=== PATIENT | female | born 1930 | race Two or more races ===

== ENCOUNTER 2017-09-13 08:43 | Emergency (ER) | payer OTHER ==
[~2017-09-13] VITALS: Ht 170.2 cm; Wt 65.8 kg
[~2017-09-13 08:43] MED LIST: A/F PAIN RELIE500 MG; ALAVERT10 MG; AMLODIPINE BESYL5 MG; CLONAZEPAM1 MG; DIOVAN320 MG; FLUOXETINE HCL10 MG; PEPCID40 MG; PROTONIX40 M1
== END 2017-09-13 18:53 | disposition home or self-care (01) ==
LOC: ER 08:43
DX: M62.81 Muscle weakness (generalized) (principal); G89.29 Other chronic pain; M25.561 Pain in right knee

== ENCOUNTER 2017-11-03 18:51 | Inpatient (IN) | payer OTHER ==
[~2017-11-03] VITALS: Ht 172.7 cm; Wt 75.7 kg
== END 2017-12-05 19:17 | disposition expired | DRG 291 ==
LOC: ER 18:51 → ICU-2 11-04 00:09 → ICU 11-04 00:09 → MEDJ 11-09 18:33 → MEDI 11-09 18:33 → MEDJ 11-10 13:24 → ICU 11-16 12:35
PROC: B246ZZZ Ultrasonography of Right and Left Heart (ICD-10-PCS; principal; 2017-11-04)
PROC: 3E0F7GC Introduction of Other Therapeutic Substance into Respiratory Tract, Via Natural or Artificial Opening (ICD-10-PCS; 2017-11-04)
PROC: 02HV33Z Insertion of Infusion Device into Superior Vena Cava, Percutaneous Approach (ICD-10-PCS; 2017-11-07)
PROC: BW28ZZZ Computerized Tomography (CT Scan) of Head (ICD-10-PCS; 2017-11-09)
PROC: 4A12X4Z Monitoring of Cardiac Electrical Activity, External Approach (ICD-10-PCS; 2017-11-09)
PROC: 4A033R1 Measurement of Arterial Saturation, Peripheral, Percutaneous Approach (ICD-10-PCS; 2017-11-11)
PROC: BW40ZZZ Ultrasonography of Abdomen (ICD-10-PCS; 2017-11-11)
PROC: 5A1955Z Respiratory Ventilation, Greater than 96 Consecutive Hours (ICD-10-PCS; 2017-11-16)
PROC: 0BH17EZ Insertion of Endotracheal Airway into Trachea, Via Natural or Artificial Opening (ICD-10-PCS; 2017-11-16)
PROC: 30233R1 Transfusion of Nonautologous Platelets into Peripheral Vein, Percutaneous Approach (ICD-10-PCS; 2017-12-03)
DX: I11.0 Hypertensive heart disease with heart failure (principal); G93.41 Metabolic encephalopathy; J96.01 Acute respiratory failure with hypoxia; A41.9 Sepsis, unspecified organism; J81.0 Acute pulmonary edema; J18.9 Pneumonia, unspecified organism; R65.21 Severe sepsis with septic shock; D65 Disseminated intravascular coagulation [defibrination syndrome]; A41.59 Other Gram-negative sepsis; J44.1 Chronic obstructive pulmonary disease with (acute) exacerbation; B37.0 Candidal stomatitis; N17.8 Other acute kidney failure; B37.49 Other urogenital candidiasis; E87.1 Hypo-osmolality and hyponatremia; J90 Pleural effusion, not elsewhere classified; I50.33 Acute on chronic diastolic (congestive) heart failure; I34.0 Nonrheumatic mitral (valve) insufficiency; I27.29 Other secondary pulmonary hypertension; I48.0 Paroxysmal atrial fibrillation; G30.8 Other Alzheimer's disease; F02.80 Dementia in other diseases classified elsewhere, unspecified severity, without behavioral disturbance, psychotic disturbance, mood disturbance, and anxiety; Z86.73 Personal history of transient ischemic attack (TIA), and cerebral infarction without residual deficits; E88.09 Other disorders of plasma-protein metabolism, not elsewhere classified; E87.6 Hypokalemia; Z66 Do not resuscitate; D64.89 Other specified anemias; M25.552 Pain in left hip; M25.562 Pain in left knee; M25.561 Pain in right knee; B96.1 Klebsiella pneumoniae [K. pneumoniae] as the cause of diseases classified elsewhere; Z16.24 Resistance to multiple antibiotics; D35.02 Benign neoplasm of left adrenal gland; L89.152 Pressure ulcer of sacral region, stage 2; Z78.1 Physical restraint status